=== PATIENT | female | born 1995 | race Caucasian/White ===

== ENCOUNTER 2016-10-07 21:43 | Emergency (ER) | payer BC ==
[~2016-10-07] VITALS: Ht 152.4 cm; Wt 52.1 kg
[2016-10-07 21:44] VITALS: TEMP 36.6; Ht 152.4 cm; Wt 52.1 kg
--- NOTE | 2016-10-07 22:15 | EMERGENCY ROOM VISIT NOTE ---
History Report prepared by Reji: River Garcia Under the Supervision of: Dr. Yuan Vernon M.D. First contact with patient: 22:06 Chief Complaint: LACERATION/CUT (NON-SUTURE) Stated Complaint: CUT RIGHT HAND KNUCKLE Nursing Triage Summary: pt has small scabbed over area on right hand, ring finger, second knuckle area. pt reports it happened "a coule days ago" while she was riding, states "It rubbed on the horse." pt reports "it's really find, my parents were just freaking out." no drainage, radial pulse palpable. History of Present Illness The patient is a 21 year old female who presents to the Emergency Room with complaints of a persistent scab on her right hand that occurred 4 days ago. 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 The patient has a resulting small scab on her ring finger. She denies any fevers, chills, numbness, weakness, or drainage. The patient notes that her tetanus shot is up to date. She says that she has no chronic medical problems. Source of History: patient Onset: 4 days ago Position: hand (right) Quality: other (scab) Timing: other (persistent) Associated Symptoms: No fevers, No chills, No weakness, No numbness Note: Associated symptoms: Denies drainage. Review of Systems See HPI for pertinent positives & negatives. A total of 6 systems reviewed and were otherwise negative. Past Medical & Surgical Medical Problems: (1) No chronic diseases present Family History No pertinent family history Social History Smoking Status: Never Smoker Drug Use: none Marital Status: single Occupation Status: student Current/Historical Medications No Active Prescriptions or Reported Meds Allergies Coded Allergies: No Known Allergies (Unverified , 12/09/15) Physical Exam Vital Signs Date Time Temp Pulse Resp B/P (MAP) Pulse Ox O2 Delivery O2 Flow Rate FiO2 10/07/16 22:32 72 20 109/75 97 10/07/16 21:44 36.6 80 17 116/69 95 Room Air Physical Exam General: Well developed well nourished in no acute distress, breathing comfortably on room air. Normal speech HEENT: Normal cephalic atraumatic. Pupils are equal round and reactive to light. Extraocular movements are intact. Oropharynx is pink with moist mucous membranes. No swelling of the mouth lips or tongue. Chest: Clear to auscultation bilaterally. No wheezes or rhonchi. No increased work of breathing. Heart: regular rate and rhythm. Abdomen: Soft nontender, nondistended without rebound guarding or rigidity. Extremities: Right 4th PIP joint there is a small scab on the dorsal aspect. No redness, puss or drainage. Normal tendon function. No calf tenderness or assymetry Spine/Back. Non tender to palpation. No CVA tenderness Skin: Good turgor without rashes. Neurologic exam: Nonfocal. Normal motor and sensation in the hand Medical Decision & Procedures ED Course 2205: Past medical records reviewed. The patient was evaluated in room B8, and a complete history and physical examination were performed. The patient verbally expressed understanding and agreement of the treatment plan. The patient will be discharged. Medical Decision Differentials include, but are not limited to; laceration, infection, tendon injury. This patient comes in as described above. She has a small scab on the dorsal aspect of her right fourth knuckle. It is not red or warm or fluctuant . There is no evidence of infection or abscess. It is healing well. There is no indication for suturing. She has normal motor and sensation hand and normal tendon function. She is up-to-date on her tetanus booster. She does do a lot of horseback riding encouraged to keep it covered when she's riding and to apply bacitracin twice a day. Return if: redness, pus, fever, drainage, any new problems or concerns. Medication Reconcilliation No medications on list. Blood Pressure Screening Patient's blood pressure: Normal blood pressure Impression Primary Impression: Abrasion, hand Scribe Attestation The scribe's documentation has been prepared under my direction and personally reviewed by me in its entirety. I confirm that the note above accurately reflects all work, treatment, procedures, and medical decision making performed by me. Departure Information Dispostion Home / Self-Care Prescriptions No Active Prescriptions or Reported Meds Referrals No Doctor, Assigned (PCP) Patient Instructions My [facility] Additional Instructions Rest. Apply bacitracin twice a day Keep clean and dry Keep covered when you ride a horse Return if: increasing pain, redness or warmth, numbness weakness, fever chills, any new problems or concerns
[2016-10-07 22:32] VITALS: BP 109/75; PULSE 72; O2SAT 97
== END 2016-10-07 22:23 | disposition home or self-care (01) ==
LOC: C.EDB 21:44
DX: S60.511A Abrasion of right hand, initial encounter (principal); X58.XXXA Exposure to other specified factors, initial encounter

== ENCOUNTER 2016-12-11 21:31 | Emergency (ER) | payer BC ==
[~2016-12-11] VITALS: Ht 152.4 cm; Wt 52.5 kg
[2016-12-11 21:32] VITALS: TEMP 36.4; Ht 152.4 cm; Wt 52.5 kg
[2016-12-11] MEDS ORDERED: ONDANSETRON INJ 2 MG/ML 2 ML VIAL IV STA (21:48)
[2016-12-11] MEDS ORDERED: SODIUM CHLORIDE 0.9% 1000ML 1,000 ML IV STA (21:48)
[2016-12-11] MEDS ORDERED: ONDANSETRON INJ 2 MG/ML 2 ML VIAL ONE (21:52)
[2016-12-11 22:10] LABS: BASO % 0.2 %; BASO ABS # 0.01 K/uL (0-0.2); COMPLETE YES; EOS % 3.2 %; HEMATOCRIT 41.4 % (37-47); IG% 0.2 %; LYMPH % 33.4 %; LYMPH ABS # 1.46 K/uL (1.2-3.4); MEAN CELL VOLUME 85.7 fL (80-100); MEAN CORPUSCULAR HEMOGLOBIN 30.2 pg (25-34); MEAN CORPUSCULAR HGB CONC 35.3 g/dl (32-36); MEAN PLATELET VOLUME 10.4 fL (7.4-10.4); MONO % 8.9 %; NEUT % 54.1 %; PLATELET COUNT 206 K/uL (130-400); RED BLOOD COUNT 4.83 M/uL (4.2-5.4); WHITE BLOOD COUNT 4.37 K/uL (4.8-10.8)
[2016-12-11 22:15] LABS: URINE APPEARANCE CLEAR (CLEAR); URINE BILIRUBIN NEG (NEG); URINE COLOR YELLOW; URINE NITRITE NEG (NEG); URINE PH 7.5 (4.5-7.5); URINE SPECIFIC GRAVITY 1.009 (1.000-1.030); UROBILINOGEN NEG (NEG); ZZUR CULT IF INDIC CLEAN CATCH NO
[2016-12-11 22:18] LABS: MANUAL MICROSCOPIC REQUIRED? NO; REVIEW REQ? NO
[2016-12-11 22:26] LABS: PREG INTERNAL NEGATIVE QC NEG CLEAR BACKGROUND; PREG INTERNAL POSITIVE QC POS CONTROL LINE
[2016-12-11 22:28] LABS: CREATININE 0.83 mg/dl (0.60-1.20)
[2016-12-11 22:29] LABS: BUN/CREATININE RATIO 12.8 (10-20); CALCIUM 9.3 mg/dl (8.5-10.1); POTASSIUM 3.4 mmol/L (3.5-5.1)
[2016-12-11] MEDS ORDERED: SULF800T23 PO (22:44)
[2016-12-12 00:53] VITALS: BP 104/57; PULSE 71; O2SAT 98
[2016-12-12] MEDS ORDERED: POTASSIUM CHLORIDE 10 MEQ TABCR PO STA (00:53)
--- NOTE | 2016-12-12 04:24 | EMERGENCY ROOM VISIT NOTE ---
History First contact with patient: 21:37 Chief Complaint: ABDOMINAL PAIN Stated Complaint: ABD PAIN,VOMITING,UTI? Nursing Triage Summary: Pt reports she went to [facility] and was tx for UTI. Pt went home and started Batrim. Now pt having worsening pain, vomiting and diarrhea. History of Present Illness The patient is a 21 year old female who presents to the Emergency Room with complaints of suprapubic cramping for the past several hours and she went to urgent care and was diagnosed with a UTI. Patient was placed on Bactrim and then vomited. Patient states she finished her menstrual cycle over a week ago. Pain currently 3 out of 10. Nothing makes it better or worse. Patient complains of urinary frequency. Patient denies chest pain, dyspnea, back pain, dysuria, vaginal itching or discharge, fever, chills. She is tolerate by mouth fluids and food. Urgent care told her to go to the ER if she vomits. Review of Systems See HPI for pertinent positives & negatives. A total of 10 systems reviewed and were otherwise negative. Past Medical/Surgical History Medical Problems: (1) No chronic diseases present Family History No pertinent family history Social History Smoking Status: Never Smoker Drug Use: none Marital Status: single Occupation Status: student Current/Historical Medications Scheduled Sulfa/Trimethoprim (Bactrim Ds 800MG/160MG), 1 TAB PO BID Physical Exam Vital Signs Date Time Temp Pulse Resp B/P (MAP) Pulse Ox O2 Delivery O2 Flow Rate FiO2 12/12/16 00:53 71 16 104/57 98 Room Air 12/12/16 00:09 62 16 105/57 97 Room Air 12/11/16 23:10 68 16 100/52 98 Room Air 12/11/16 21:32 36.4 76 20 120/85 98 Room Air Physical Exam VITALS: Vitals are noted on the nurse's note and reviewed by myself. Vital signs stable. GENERAL: Pleasant female, in no acute distress, nondiaphoretic, well-developed well-nourished. SKIN: The skin was without rashes, erythema, edema, or bruising. There is no tenting of the skin. Capillary reflex less than 2 seconds. HEAD: Normocephalic atraumatic. EARS: External auditory canals clear, tympanic membranes pearly adrian without erythema or effusion bilaterally. EYES: Pupils equal round and reactive to light and accommodation. Conjunctivae without injection, sclerae without icterus. Extraocular movements intact. NOSE: Patent, turbinates without inflammation or discharge. MOUTH: Mucous membranes moist. Pharynx without erythema or exudate. Uvula midline. Airway patent. Tongue does not deviate. NECK: Supple without nuchal rigidity. No lymphadenopathy. No thyromegaly. Cervical spine is nontender. No JVD. HEART: Regular rate and rhythm without murmurs gallops or rubs. LUNGS: Clear to auscultation bilaterally without wheezes, rales or rhonchi. No dullness to percussion. No retractions or accessory muscle use. ABDOMEN: Positive bowel sounds x 4. Normal tympanic percussion. Soft, minimally tender suprapubic area, no CVA tenderness, without masses or organomegaly. Nunes sign negative. No guarding or rebound tenderness. MUSCULOSKELETAL: No muscle atrophy, erythema, or edema noted. NEURO: Patient was alert and oriented to person place and time. Normal sensation to light and sharp touch. No focal neurological deficits. Medical Decision & Procedures Laboratory Results 12/11/16 22:00 Red Blood Count 4.83, Mean Corpuscular Volume 85.7, Mean Corpuscular Hemoglobin 30.2, Mean Corpuscular Hemoglobin Concent 35.3, Mean Platelet Volume 10.4, Neutrophils (%) (Auto) 54.1, Lymphocytes (%) (Auto) 33.4, Monocytes (%) (Auto) 8.9, Eosinophils (%) (Auto) 3.2, Basophils (%) (Auto) 0.2, Neutrophils # (Auto) 2.36, Lymphocytes # (Auto) 1.46, Monocytes # (Auto) 0.39, Eosinophils # (Auto) 0.14, Basophils # (Auto) 0.01 12/11/16 22:00 Test 12/11/16 21:58 12/11/16 22:00 Urine Color YELLOW Urine Appearance CLEAR (CLEAR) Urine pH 7.5 (4.5-7.5) Urine Specific [place] 1.009 (1.000-1.030) Urine Protein NEG (NEG) Urine Glucose (UA) NEG (NEG) Urine Ketones NEG (NEG) Urine Occult Blood NEG (NEG) Urine Nitrite NEG (NEG) Urine Bilirubin NEG (NEG) Urine Urobilinogen NEG (NEG) Urine Leukocyte Esterase NEG (NEG) Urine Test NEG (NEG) White Blood Count 4.37 K/uL (4.8-10.8) Red Blood Count 4.83 M/uL (4.2-5.4) Hemoglobin 14.6 g/dL (12.0-16.0) Hematocrit 41.4 % (37-47) Mean Corpuscular Volume 85.7 fL (80-100) Mean Corpuscular Hemoglobin 30.2 pg (25-34) Mean Corpuscular Hemoglobin Concent 35.3 g/dl (32-36) Platelet Count 206 K/uL (130-400) Mean Platelet Volume 10.4 fL (7.4-10.4) Neutrophils (%) (Auto) 54.1 % Lymphocytes (%) (Auto) 33.4 % Monocytes (%) (Auto) 8.9 % Eosinophils (%) (Auto) 3.2 % Basophils (%) (Auto) 0.2 % Neutrophils # (Auto) 2.36 K/uL (1.4-6.5) Lymphocytes # (Auto) 1.46 K/uL (1.2-3.4) Monocytes # (Auto) 0.39 K/uL (0.11-0.59) Eosinophils # (Auto) 0.14 K/uL (0-0.5) Basophils # (Auto) 0.01 K/uL (0-0.2) RDW Standard Deviation 37.1 fL (36.4-46.3) RDW Coefficient of Variation 11.8 % (11.5-14.5) Immature Granulocyte % (Auto) 0.2 % Immature Granulocyte # (Auto) 0.01 K/uL (0.00-0.02) Anion Gap 5.0 mmol/L (3-11) Est Creatinine Clear Calc Drug Dose 75.7 ml/min Estimated GFR () 115.2 Estimated GFR (Non- 99.4 BUN/Creatinine Ratio 12.8 (10-20) Calcium Level 9.3 mg/dl (8.5-10.1) Total Bilirubin 0.3 mg/dl (0.2-1) Direct Bilirubin 0.1 mg/dl (0-0.2) Aspartate Amino Transf (AST/SGOT) 17 U/L (15-37) Alanine Aminotransferase (ALT/SGPT) 10 U/L (12-78) Alkaline Phosphatase 63 U/L (45-117) Total Protein 8.1 gm/dl (6.4-8.2) Albumin 4.5 gm/dl (3.4-5.0) Medications Administered Medications (Trade) Dose Ordered Sig/Aneesh Route Start Time Stop Time Status Last Admin Dose Admin Sodium Chloride 1,000 ml @ 999 mls/hr Q1H1M STAT IV 12/11/16 21:48 12/11/16 22:48 DC 12/11/16 21:48 999 MLS/HR Ondansetron HCl (Zofran Inj) 4 mg NOW STAT IV 12/11/16 21:48 12/11/16 22:02 DC 12/11/16 21:48 4 MG Potassium Chloride (Klor-Con M10) 10 meq NOW STAT PO 12/12/16 00:53 12/12/16 00:55 DC 12/12/16 00:57 10 MEQ ED Course Prior records/ancillary studies reviewed. Triage Nursing notes reviewed. Additional history obtained from friend The patient's history was concerning for suprapubic cramping. Differential diagnosis: Etiologies such as ovarian cyst, ovarian torsion, , appendicitis, diverticulitis, UTI, STI, obstruction, infections, inflammatory bowel disease , renal colic, as well as others were entertained. Physical examination findings: As above. ER treatment provided: IV fluids, Zofran On reassessment the patient felt better. Diagnostics interpreted by me: The labs revealed no leukocytosis. Negative urine. Negative hCG. Imaging studies: Ultrasound was reviewed and read by stat radiology which shows multiple follicles in the ovaries. Blood flow to the ovaries. Exam and history seems consistent with abdominal cramping that has resolved on its own. This could've been gas or bloating. Patient did not have acute abdomen on exam. No bladder infection on urinalysis. She was not . She is advised to stop the antibiotic and to rest, stay well-hydrated and to follow-up health services in a few days or here in the ER sooner for abdominal pain, fevers, vomiting, worsening signs or symptoms or as needed. By the evaluation outlined above emergent etiologies such as appendicitis, diverticulitis, PUD, biliary pathology, UTI, pancreatitis, obstruction, mesenteric ischemia, aortic pathology, infections, inflammatory bowel disease, renal colic, as well as others were deemed relatively unlikely. The pt informed about the findings as listed above. All questions were answered and pleased with the treatment. Return instructions were outlined and the patient was discharged in stable condition. Case reviewed with my attending Referral: The patient was referred back to their primary care physician for follow-up in 2 to 3 days for a recheck of the current condition. Medical Decision As above Medication Reconcilliation Current Medication List: was personally reviewed by me Blood Pressure Screening Patient's blood pressure: Normal blood pressure Impression Primary Impression: Suprapubic cramping Departure Information Dispostion Home / Self-Care Condition GOOD Forms HOME CARE DOCUMENTATION FORM, School Instructions, Return To School: 2 days IMPORTANT VISIT INFORMATION Patient Instructions My [facility] Additional Instructions Stop the antibiotic. You do not have a bladder infection. Ibuprofen(Motrin, Advil) may be used for fever or pain. Use 400mg every six hours as needed. Take with food. Avoid using more than 1600mg in a 24 hour period. Do not use 1600mg per day for more than three consecutive days without physician direction. Prolonged inappropriate use can lead to stomach upset or ulcers. (AND/OR) Acetaminophen(Tylenol) may be used for fever or pain. Use 500mg every six hours as needed. Avoid using more than 2000mg in a 24 hour period. Rest and drink plenty of fluids as tolerated. Continue current medications. Avoid strenuous activities and anything that worsens your pain. Resume normal activities once your symptoms resolve. Return to the ER immediately for worsening or persistent abdominal pain, vomiting, fevers, chest pains, difficulty breathing, worsening of your condition , or as needed. Follow up with your primary physician/health services in 2-3 days for a recheck of your current condition. School Instructions Return To School: 2 days
--- NOTE | 2016-12-12 07:19 | DIAGNOSTIC IMAGING REPORT ---
PELVIC ULTRASOUND, TRANSABDOMINAL AND TRANSVAGINAL HISTORY: Left lower quadrant pelvic pain. COMPARISON: None. FINDINGS: Uterus: Unremarkable. Endometrial stripe: 1.1 cm in thickness. Right ovary: Normal in size and demonstrates normal color flow. Dominant 2.4 cm simple cyst. Left ovary: Normal in size and demonstrates normal color flow. A few small follicles/cysts. Miscellaneous:Small amount of pelvic free fluid. IMPRESSION: 1. Bilateral ovarian follicles/cysts with the largest on the right measuring 2.4 cm. 2. The ovaries demonstrate normal color flow. 3. Small amount of pelvic free fluid. This is likely physiologic. Electronically signed by: Zackary Rodriguez M.D. 12/12/2016 7:17 AM Dictated Date/Time: 12/12/2016 7:15 AM
== END 2016-12-12 01:00 | disposition home or self-care (01) ==
LOC: C.EDB 21:32 → C.EDC 12-12 01:00
DX: R10.84 Generalized abdominal pain (principal); R35.0 Frequency of micturition

== ENCOUNTER 2017-07-26 13:48 | Emergency (ER) | payer BC ==
[~2017-07-26] VITALS: Ht 152.4 cm; Wt 51.9 kg
[~2017-07-26 13:48] MED LIST: SULF800T23 PO
[2017-07-26 13:53] VITALS: TEMP 36.7; Ht 152.4 cm; Wt 51.9 kg
[2017-07-26] MEDS ORDERED: PROPARACAINE HCL 0.5% OP SOLN 15 ML BTL OP STA (13:58)
[2017-07-26 15:27] VITALS: BP 110/76; PULSE 66; O2SAT 98
--- NOTE | 2017-07-26 15:31 | EMERGENCY ROOM VISIT NOTE ---
History First contact with patient: 13:58 Chief Complaint: EYE ASSESSMENT Stated Complaint: DEBRIS IN LEFT EYE History of Present Illness The patient is a 21 year old female who presents to the Emergency Room with complaints of a foreign body sensation in the left eye. The patient reports that she and friends were walking through a park yesterday when a kiana of wind blew a large amount of pollen out of the trees. The patient believes that she got a large amount of the pollen in her eyes. The patient reports that her eye was notably irritated last evening. She did flush her eyes with water several times. When she woke up this morning, her eye was still irritated, and elected to come to the emergency department for evaluation. She denies any blurred vision, light sensitivity or bloody drainage from the eye. The patient denies history of seasonal allergies. She denies any significant pain. Review of Systems 10 system review was performed and was negative except for pertinent positives and negatives as indicated in history of present illness Past Medical/Surgical History Medical Problems: (1) No chronic diseases present Family History No pertinent family history Social History Smoking Status: Never Smoker Drug Use: none Marital Status: single Occupation Status: student Current/Historical Medications No Active Prescriptions or Reported Meds Physical Exam Vital Signs Date Time Temp Pulse Resp B/P (MAP) Pulse Ox O2 Delivery O2 Flow Rate FiO2 07/26/17 14:35 65 20 115/76 100 Room Air 07/26/17 13:53 36.7 99 20 115/75 100 Room Air Right Eye Acuity: 20/30 Left Eye Acuity: 20/30 Physical Exam CONSTITUTIONAL: Healthy and well nourished. Patient does not appear in any acute distress. HEENT: Normocephalic, atraumatic. Pupils equal, round and reactive. No significant conjunctival injection, excessive tearing or mucopurulent drainage from the left eye. EOMs intact. OROPHARYNX: No posterior pharyngeal erythema, tonsillar hypertrophy or exudates. NECK: Full active range of motion without discomfort. RESPIRATORY: Clear to auscultation bilaterally with no wheezing, crackles, rhonchi or stridor. CARDIOVASCULAR: Regular rate and rhythm with no murmurs, rubs or gallops. INTEGUMENTARY: No rash or other significant dermatologic conditions noted. NEUROLOGIC: No focal neurologic deficits noted. Medical Decision & Procedures Procedure Slit-lamp and fluorescein exam were performed. 2 drops of Alcaine were instilled into the left side. This completely resolved the patient's discomfort. Examination does not show any debris within the lower conjunctival sac. No significant conjunctival injection noted. Negative hyphema. Fluorescein exam did not show any corneal abrasions. The upper eyelid was then everted to show no evidence for retained foreign body under the lid. At this point, I recommended Max lens irrigation. An additional 2 drops of Alcaine were instilled into the eye prior to Max lens insertion. The eye was then irrigated with a liter of normal saline. The patient tolerated irrigation well. ED Course Patient history and physical exam were performed. Nurse's notes were reviewed. Vital signs were reviewed and were normal. Visual acuity was also reviewed and equal bilaterally. The patient usually wears glasses, and did not have them with her. Slit-lamp and fluorescein exam did not show any significant conjunctival injection or evidence of corneal abrasion. Max lens irrigation was then utilized to further flush the eye. The patient was encouraged to intermittently apply a cool compress to the eye. She was provided contact information for Dr. Goldberg, sack repairer if her symptoms are not improving within the next 24-48 hours. She may return to the emergency department for any concerning symptoms such as change in vision, significant eye swelling/ redness or purulent drainage from the eye. The patient was happy with plan of care, voiced understanding of all discharge instructions, and denied any pain at the time of discharge. Medical Decision Medication Reconcilliation Current Medication List: was personally reviewed by me Impression Primary Impression: Allergic conjunctivitis, left eye Departure Information Dispostion Home / Self-Care Prescriptions No Active Prescriptions or Reported Meds Referrals Sergei Goldberg D.O. Forms HOME CARE DOCUMENTATION FORM, IMPORTANT VISIT INFORMATION Patient Instructions My [facility] Additional Instructions Intermittently apply a cool compress to the eye. Follow-up with ophthalmology (Dr. Goldberg) if symptoms are not improved by Thursday.
== END 2017-07-26 15:27 | disposition home or self-care (01) ==
LOC: C.EDB 13:50 → C.EDD 15:27
DX: H10.12 Acute atopic conjunctivitis, left eye (principal)